=== PATIENT | female | born 1995 | race Hispanic/Latino ===

== ENCOUNTER 2024-09-17 21:08 | Emergency (ER) | payer OTHER ==
[~2024-09-17] VITALS: Ht 162.6 cm; Wt 66.0 kg
[2024-09-17 21:14] VITALS: BP 119/72; TEMP 97.9; O2SAT 98
== END 2024-09-18 00:04 | disposition home or self-care (01) ==
LOC: M ED 21:08
DX: J06.9 Acute upper respiratory infection, unspecified (principal)